=== PATIENT | male | born 1980 | race Caucasian/White ===

== ENCOUNTER 2018-08-21 06:03 | Inpatient (IN) | payer OTHER ==
[~2018-08-21 06:03] MED LIST: POVIDONE-IODINE 20 ML in SODIUM CL IRRIG SOLUTION 500 ML IRR ONE; ROPIVACAINE 0.2% 80 MG, EPINEPHrine 0.2 MG, KETOROLAC TROMETHAMINE 30 MG in SYRINGE 0 ML IU ONE; TRANEXAMIC ACID 1,000 MG in NS 100 ML IV ONE; TRANEXAMIC ACID 3,000 MG in NS (SYRINGE) 50 ML IRR ONE; ceFAZolin 2 GM/DEXTROSE 100 ML IV ONE
[2018-08-21] MEDS ORDERED: LR 1,000 ML IV ONE (06:04)
[2018-08-21] MEDS ORDERED: ACETAMINOPHEN 325 MG TAB PO ONE (06:04)
[2018-08-21] MEDS ORDERED: ONDANSETRON 4 MG/2 ML VIAL IVP ONE (06:04)
[2018-08-21] MEDS ORDERED: GABAPENTIN 300 MG CAP PO ONE (06:04)
[2018-08-21] MEDS ORDERED: DEXAMETHASONE 4 MG/ML VIAL IVP ONE (06:04)
[2018-08-21] MEDS ORDERED: FAMOTIDINE 20 MG TAB PO ONE (06:04)
[2018-08-21] MEDS ORDERED: LIDOCAINE 1% 2 ML INJ ID PRN (06:04)
[2018-08-21] MEDS ORDERED: ceFAZolin 1 GM/5 ML SYR ONE (06:48)
--- NOTE | 2018-08-21 06:49 | PDHPUP ---
History & Physical Update H&P update statement: This history and physical update is based on an assessment of the patient which was completed after admission or registration (within 24 hours), but prior to the surgery/procedure. H&P update: H&P reviewed & patient examined
[2018-08-21] MEDS ORDERED: MIDAZOLAM 2 MG/2 ML VIAL ONE (07:04)
[2018-08-21] MEDS ORDERED: MIDAZOLAM 2 MG/2 ML VIAL IVP ONE (07:06)
--- NOTE | 2018-08-21 07:06 | PDANEPAE ---
ANE History of Present Illness kary ANE Past Medical History - Cardiovascular History Hx Hypertension: No Hx Arrhythmias: No Hx Chest Pain: No Hx Coronary Artery / Peripheral Vascular Disease: No Hx CHF / Valvular Disease: No Hx Palpitations: No - Pulmonary History Hx COPD: No Hx Asthma/Reactive Airway Disease: No Hx Recent Upper Respiratory Infection: No Hx Oxygen in Use at Home: No Hx Sleep Apnea: No Sleep Apnea Screening Result - Last Documented: Negative - Neurologic History Hx Cerebrovascular Accident: No Hx Seizures: No Hx Dementia: No - Endocrine History Hx Diabetes: No Hypothyroid: No Hyperthyroid: No Obesity: no - Renal History Hx Renal Disorders: No - Liver History Hx Hepatic Disorders: No - Neurological & Psychiatric Hx Hx Neurological and Psychiatric Disorders: No - Cancer History Hx Cancer: Yes 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 OSTEOARTHRITIS - Chronic Pain History Chronic Pain: Yes (LT HIP) - Surgical History Prior Surgeries: NONE ANE Review of Systems Review of Systems: - Exercise capacity Exercise capacity: >=4 METS METS (RN): 6 METS ANE Patient History - Allergies Allergies/Adverse Reactions: Sulfa (Sulfonamide Antibiotics) Allergy (Verified 08/06/18 11:10) Hives/Fever - Home Medications Home Medications: Ascorbic Acid [Vitamin C 500 mg (*)] 500 mg PO DAILY 08/06/18 [Last Taken ] Cholecalciferol Vit D3 [Vitamin D3 (*)] 1,000 units PO DAILY 08/06/18 [Last Taken 08/14/18] Herbals/Supplements -Info Only 1 ea PO DAILY 08/06/18 [Last Taken 08/14/18] LORazepam [Ativan (*)] 1 mg PO DAILY PRN 08/06/18 [Last Taken 08/21/18 05:00] [place]-3 Fatty Acids [Fish Oil 1000 mg (*)] 1,000 mg PO DAILY 08/06/18 [Last Taken 08/14/18] Terbinafine DAILY 08/15/18 [Last Taken 08/14/18] - NPO status NPO Status: no food or drink >8 hours NPO Since - Liquids (Date): 08/21/18 NPO Since - Liquids (Time): 05:30 NPO Since - Solids (Date): 08/20/18 NPO Since - Solids (Time): 19:00 - Anes Hx Anes Hx: no prior problems - Smoking Hx Smoking Status: Former smoker - Family Anes Hx Family Hx Anesthesia Complications: NEG ANE Labs/Vital Signs - Vital Signs Blood Pressure: 93/59 Heart Rate: 57 Respiratory Rate: 16 O2 Sat (%): 99 Height: 185.42 cm Weight: 63.503 kg ANE Physical Exam - Airway Mallampati Score: Class 2 Mouth exam: normal dental/mouth exam - Pulmonary Pulmonary: no respiratory distress - Cardiovascular Cardiovascular: regular rate and rhythym - ASA Status ASA Status: I ANE Anesthesia Plan Anesthesia Plan: spinal
[2018-08-21] MEDS ORDERED: LIDOCAINE 2% 5 ML SDV ONE (07:10)
[2018-08-21] MEDS ORDERED: PROPOFOL/EMULSION 500 MG/50 ML BOTTLE IV ONE ×2 (07:10→07:59)
[2018-08-21] MEDS ORDERED: fentaNYL 100 MCG/2 ML INJ ONE (07:10)
[2018-08-21] MEDS ORDERED: BUPIVACAINE 0.5% 30 ML SDV ONE (07:11)
[2018-08-21] MEDS ORDERED: ePHEDrine SULFATE 25 MG/5 ML SYR ONE (07:51)
[2018-08-21] MEDS ORDERED: TRANEXAMIC ACID 3,000 MG/50 ML BAG IRR ONE (08:16)
[2018-08-21] MEDS ORDERED: ALBUTEROL 3 ML DEYVIAL IH PRN (08:45)
[2018-08-21] MEDS ORDERED: NALOXONE HCL 0.4 MG/ML INJ IVP PRN (08:45)
[2018-08-21] MEDS ORDERED: ONDANSETRON 4 MG/2 ML VIAL IVP PRN ×2 (08:45→08:48)
[2018-08-21] MEDS ORDERED: LR 500 ML IV PRN (08:45)
[2018-08-21] MEDS ORDERED: fentaNYL 100 MCG/2 ML INJ IVP PRN (08:45)
[2018-08-21] MEDS ORDERED: TEMAZEPAM 15 MG CAP PO PRN (08:48)
[2018-08-21] MEDS ORDERED: ONDANSETRON DISINTEGRATING 4 MG TAB PO PRN (08:48)
[2018-08-21] MEDS ORDERED: NS 500 ML IV PRN (08:48)
[2018-08-21] MEDS ORDERED: LACTULOSE 20 GM/30 ML UDCUP PO PRN (08:48)
[2018-08-21] MEDS ORDERED: PROMETHAZINE HCL 25 MG SUPPR PR PRN (08:48)
[2018-08-21] MEDS ORDERED: CYCLOBENZAPRINE 10 MG TAB PO PRN (08:48)
[2018-08-21] MEDS ORDERED: diphenhydrAMINE 25 MG CAP PO PRN (08:48)
[2018-08-21] MEDS ORDERED: BISACODYL 10 MG SUPP PR PRN (08:48)
[2018-08-21] MEDS ORDERED: METOCLOPRAMIDE 10 MG/2 ML VIAL IVP PRN (08:48)
[2018-08-21] MEDS ORDERED: PROMETHAZINE HCL 25 MG/ML INJ IVP PRN (08:48)
[2018-08-21] MEDS ORDERED: LORazepam 1 MG TAB PO PRN (08:48)
[2018-08-21] MEDS ORDERED: traMADol 50 MG TAB PO PRN (08:48)
[2018-08-21] MEDS ORDERED: DIPHENOXYLATE/ATROPINE LOMOTIL 1 TAB PO PRN (08:48)
[2018-08-21] MEDS ORDERED: MAGNESIUM HYDROXIDE 30 ML UDCUP PO PRN (08:48)
[2018-08-21] MEDS ORDERED: POLYETHYLENE GLYCOL 3350 17 GM PKT PO PRN (08:48)
--- NOTE | 2018-08-21 08:49 | POSTOPPROG ---
Post Op Note Date of Operation: 08/21/18 Surgeon: Braydon Cuellar Channel Director: Guanaco Anesthesiologist: Russell Pre-op Diagnosis: Left hip avascular necrosis Post-op Diagnosis: Left hip avascular necrosis Procedure: Left total hip arthroplasty Inf/Abcess present in the surg proc area at time of surgery?: No EBL: [id number]
--- NOTE | 2018-08-21 08:56 | POSTANESTH ---
Post Anesthetic Evaluation Cardiovascular Status: Normal, Stable Respiratory Status: Normal, Stable Level of Consciousness/Mental Status: Can Participate in Eval Pain Control: Adequate, Prn Tx Ordered Nausea/Vomiting Control: Adequate, Prn Tx Ordered Complications Possibly Related to Anesthesia: None Noted
[2018-08-21] MEDS ORDERED: LR 1,000 ML IV SCH (09:00)
[2018-08-21] MEDS ORDERED: SENNOSIDES/DOCUSATE SODIUM TAB PO SCH (09:00)
--- NOTE | 2018-08-21 10:21 | GDS ---
[f rep st] DISCHARGE SUMMARY ADMISSION DIAGNOSIS: Left hip severe avascular necrosis. DISCHARGE DIAGNOSIS: Left hip severe avascular necrosis. OPERATION PERFORMED: On 08/21/2018, left total hip arthroplasty. POSTOPERATIVE COMPLICATIONS: None. CONDITION ON DISCHARGE: Improved. DESCRIPTION OF HOSPITAL COURSE: The patient was admitted to the hospital the morning of surgery. Hi s admission CBC was normal. The same day, under a combination of Marcaine, spinal, and IV sedation, he underwent a left total hip arthroplasty. Postoperatively, he was treated with multimodal DVT prop hylaxis including Xarelto. He has a history of previous DVT around avascular port. He went to the [facility]. He was seen by Physical Therapy and made good progress with ambulation and sta irs. He was discharged the same day. DISPOSITION: The patient is discharged to his home. He will go to outpatient physical therapy. Con teresa Xarelto 10 mg a day for 21 days. He may progress to full weightbearing on the left as tolerate d. Use an abduction pillow in bed for 3 weeks. I will see him back in the office in 3 weeks. He soliz s prescriptions for oxycodone and tramadol for pain control. He will also use Celebrex daily. If th ere are any problems, he is to call me at the office. /[id number]/MODL
[2018-08-21] MEDS: oxyCODONE IR 5 MG TAB PO PRN ×3 (10:33→14:53)
--- NOTE | 2018-08-21 10:36 | GOP ---
[f rep st] OPERATIVE REPORT DATE OF OPERATION: 08/21/2018 SURGEON: Braydon Cuellar MD DIMENSIONAL INSPECTOR: Abundio Metcalf, [facility] and Swapnil Bustos, PAC ANESTHESIA: A combination of Marcaine, spinal, and IV sedation. ANESTHESIOLOGIST: Dr. Jaime Wells. PREOPERATIVE DIAGNOSIS: Left hip severe avascular necrosis. POSTOPERATIVE DIAGNOSIS: PROCEDURE PERFORMED: Left total hip arthroplasty, ceramic femoral head on highly cross-linked polyet hylene cup liner. FINDINGS: DESCRIPTION OF PROCEDURE: The patient was given 2 g of IV Ancef preoperatively within 60 minutes of surgery. He also received 1000 mg of preoperative IV tranexamic acid. He was placed on the operatin g room table and given spinal anesthesia with Marcaine by Dr. Wells. He was then placed supine and given IV sedation. A Guajardo catheter was not used. He wore a SAM stocking and SCD on the nonoperativ e leg. He was rolled to the right lateral decubitus position. The position was secured with the peg board table attachment. An axillary roll was used, and all pressure points were carefully padded. I was careful to lock his pelvis in a vertical position. His perineum was isolated with plastic adhes ranjeet drapes. The left hip and left lower extremity were prepped with ChloraPrep. They were draped fr ee using sterile sheets, stockinette, and Ioban plastic adhesive drapes. The [employer] time-out was performed to verify the correct surgical side and site and the correct patient identity. The [place] time-out was also performed. I made a 5-inch straight oblique posterolateral hip skin incision. The subcutaneous tissues were sha rply divided and hemostasis was obtained using electrocautery. The fascia leila was identified and sp lit along the axis of its fibers. I then curved posteriorly and proximally, and split the fascia of gluteus brittany and bluntly split the muscle fibers in line with their orientation. The Charnley geronimo f-retaining retractor was inserted. His sciatic nerve was located, partially exposed, and protected throughout the procedure. The external rotators and the posterior hip capsule were divided as separa te layers at the base of the femoral neck, tagged, and reflected posteriorly. A smooth 8-inch Steinm kandis pin was inserted vertically into the ilium, superior to the acetabulum. An 8-inch drill bit was inserted vertically into the greater trochanter and parallel to the first pin. The distance between the two was measured for leg length reference. His femoral head was dislocated posteriorly. There w as severe deformity of the femoral head from avascular necrosis and collapse. The femoral neck was o steotomized at the appropriate level and inclination. I was careful to preserve all his posterior capsule and most of the anterior capsule. His to labrum was excised. I prepared the femur first. This allowed me to drum drier operator the amount of natural femoral neck anteversion. This, in turn, allowed me to later determine the correct amount of cup anteversion. He had approxi mately 10 to 12 degrees of natural femoral neck anteversion. The canal was opened first laterally wi th a box chisel. I then used the power starter reamer. I then hand broached sequentially up to a si ze 7. The size 7 Accolade II standard offset broach was used as a trial stem. I was careful to late ralize adequately. Appropriate retractors were inserted to expose the acetabulum. The acetabulum was reamed sequentiall y up to 54 mm. He had very little deformity in the acetabulum and I was able to match the acetabular position to his anatomy. I selected a 54 mm [place] Tritanium Trident II cluster hole hemispherical shell. This was tapped securely into place in the proper degree of inclination anteversion. I used the transverse acetabular ligament and other acetabular bony landmarks to help me properly orient th e cup. Fixation was very tight. I performed a series of trial reductions to determine length and stability. I concluded that the siz e 7 standard offset stem with a +2.5 mm neck length with a 36 mm head and a flush or 0 degree trial l iner gave me the proper combination of appropriate length and good anterior and posterior stability. He was a few millimeters short preoperatively, and I was intentionally lengthening him. He had exce llent stability. The 0 degree Cushing X3 highly cross-linked polyethylene liner was inserted and tapped securely into place. The Saji Accolade II stem in size 7 with standard offset was inserted press-fit and was ve ry tight. I did 1 final trial reduction and confirmed that the +2.5 mm neck length with a 36 mm head was the proper combination. The [place] Biolox Delta ceramic head with an outside diameter of 36 mm , neck length of +2.5 mm was tapped securely onto the clean trunnion. The acetabulum was irrigated, cleaned, and the hip was reduced 1 final time. He had excellent stability and an appropriate amount of lengthening. 40 mL of the joint anesthetic cocktail were injected into the capsule, deep musculature, and subcutan eous tissues along the skin edges. The joint was thoroughly irrigated 1 final time with a dilute Bet adine solution. His sciatic nerve was reinspected and looked unharmed. 50 mL of the tranexamic acid solution were irrigated into the wound and left in place. The external rotators and the posterior h ip capsule were repaired in separate layers with #2 FiberWire sutures through drill holes in the grea ter trochanter. The fascia leila was closed first with 2 interrupted hjnoub-by-xcoip #2 FiberWire sut ures, followed by a running #2 barbed Ethicon Stratafix PDO suture. Subcutaneous tissues were closed in layers beginning with 2-0 Monocryl interrupted sutures, followed by a running [address]atafix Monoderm suture. The skin was closed with a running 3-0 barbed Ethicon Stratafix Monoderm ho bcuticular suture. The skin edges were reapproximated and sealed with Dermabond glue. The wound was covered with a large Mepilex waterproof dressing. The sterile Mepilex sacral dressing was applied. A long-leg SAM stocking and SCD were applied to the left lower extremity. He wore a stocking and SCD on the opposite leg during the procedure. An abduction pillow was placed between his knees. He was awakened from anesthesia and rolled to the supine position on his [facility]. He was taken to PACU in satisfactory condition. There were no recognized intraoperative complications. The estimated blood loss about 300 mL. The sponge and needle count were correct on 2 occasions. I used a [place] Trident II Tritanium hemispherical cluster hole acetabular shell with an outside timur meter of 54 mm. The liner was a Cushing X3 0-degree highly cross-linked liner with an inside diamete r of 36 mm. The femoral component was a standard offset Accolade II stem and a size 7 and press-fit. The femoral head was a [place] Biolox Delta ceramic head with a +2.5 mm neck length and a 36 mm out side diameter. Abundio Metcalf and Johann Bustos acted as surgical assistants. Their assistance was a medical necess ity for safe completion of the procedure. /[id number]/MODL
--- NOTE | 2018-08-21 10:57 | ASMTLACE ---
LACE Length of stay for Answers: 1 day current admission Acuity / Level of Answers: Yes Care: Did the patient have an inpatient admission? Comorbidities - select Answers: Other Notes: Cancer all that apply # of Emergency department Answers: 0 visits in the last 6 months Score: 5 Date Signed: 08/21/2018 10:56 AM Electronically Signed By:GLORIA Sterling
[2018-08-21] MEDS ORDERED: KETOROLAC 15 MG/1 ML SDV IVP SCH (12:00)
[2018-08-21 13:19] VITALS: BP 108/68
[2018-08-21] MEDS ORDERED: ceFAZolin 2 GM/DEXTROSE 100 ML IV SCH (14:00)
--- NOTE | 2018-08-21 14:41 | PDMN ---
Medical Necessity Medical necessity: Pt meets IP criteria as of 08/21/2018 per and ZAHIDA S-560 ( total hip arthroplasty): Medicare IP only procedure.
[2018-08-21] MEDS ORDERED: ACETAMINOPHEN 325 MG TAB PO SCH (14:49)
[2018-08-21] MEDS ORDERED: FAMOTIDINE 20 MG TAB PO SCH (21:00)
[2018-08-22] MEDS ORDERED: FERROUS SULFATE 325 MG TAB PO SCH (08:00)
[2018-08-22] MEDS ORDERED: RIVAROXABAN 10 MG TAB PO SCH (09:00)
[2018-08-22] MEDS ORDERED: TERBINAFINE HCL 250 MG TAB PO SCH (09:00)
== END 2018-08-21 15:44 | disposition home or self-care (01) | DRG 470 ==
LOC: F3N 06:03
PROVIDERS: ADMIT Orthopaedic Surgery; ATTEND Orthopaedic Surgery
PROC: 0SRB04A Replacement of Left Hip Joint with Ceramic on Polyethylene Synthetic Substitute, Uncemented, Open Approach (ICD-10-PCS; principal; 2018-08-21 07:15)
DX: M87.152 Osteonecrosis due to drugs, left femur (principal); M87.151 Osteonecrosis due to drugs, right femur; T45.1X5A Adverse effect of antineoplastic and immunosuppressive drugs, initial encounter; Z85.72 Personal history of non-Hodgkin lymphomas; Z86.718 Personal history of other venous thrombosis and embolism; Z87.891 Personal history of nicotine dependence
CPT/HCPCS: 97161-GP; 97165-GO; J0171; J0690; J1100; J1885; J2250; J2405; J2704; J2795; J3010

== ENCOUNTER → 2018-11-06 | Outpatient (CLI) | payer OTHER | LOC: FIMAGING 14:51 ==